=== PATIENT | female | born 1985 | race Caucasian/White ===

== ENCOUNTER 2018-11-30 12:29 | Emergency (ER) | payer OTHER ==
[~2018-11-30] VITALS: Ht 162.6 cm; Wt 57.6 kg
[~2018-11-30 12:29] MED LIST: ROBAXIN 750 MG750 MG PO; ULTRAM 50MG TAB50 MG PO
[2018-11-30] MEDS ORDERED: NALTREXONE HCL50 MG PO (12:42)
[2018-11-30] MEDS ORDERED: GABAPENTIN 100100 MG PO (12:42)
[2018-11-30] MEDS ORDERED: SEROQUEL XR150 MG PO (12:43)
[2018-11-30] MEDS ORDERED: IBUPROFEN 600600 M1 PO (13:18)
[2018-11-30 13:39] VITALS: BP 139/76
== END 2018-11-30 13:41 | disposition home or self-care (01) ==
LOC: M.ERS 12:29
DX: S93.491A Sprain of other ligament of right ankle, initial encounter (principal); F32.9 Major depressive disorder, single episode, unspecified; F41.9 Anxiety disorder, unspecified; M41.9 Scoliosis, unspecified; J43.9 Emphysema, unspecified; F17.210 Nicotine dependence, cigarettes, uncomplicated; Z88.0 Allergy status to penicillin; Z88.1 Allergy status to other antibiotic agents; W18.39XA Other fall on same level, initial encounter; Y93.89 Activity, other specified; Y92.89 Other specified places as the place of occurrence of the external cause; Y99.8 Other external cause status

== ENCOUNTER 2019-07-03 19:55 | Emergency (ER) | payer OTHER ==
[~2019-07-03] VITALS: Ht 160 cm; Wt 57.6 kg
[~2019-07-03 19:55] MED LIST changes: +GABAPENTIN 100100 MG PO; +IBUPROFEN 600600 M1 PO; +NALTREXONE HCL50 MG PO; +SEROQUEL XR150 MG PO
[2019-07-03 22:40] LABS: INFLUENZA A ANTIGEN Negative (Negative); INFLUENZA B ANTIGEN Negative (Negative)
[2019-07-03] MEDS ORDERED: ZPAK PO (23:03)
[2019-07-03] MEDS ORDERED: MEDROLDOSEPACK PO (23:03)
[2019-07-03] MEDS ORDERED: DOXYCYCLINE 10100 MG PO (23:08)
[2019-07-03 23:39] VITALS: BP 122/90
== END 2019-07-03 23:39 | disposition home or self-care (01) ==
LOC: M.ERS 19:55
PROVIDERS: Nurse Practitioner Family
DX: J20.9 Acute bronchitis, unspecified (principal); J04.0 Acute laryngitis; F41.9 Anxiety disorder, unspecified; F32.9 Major depressive disorder, single episode, unspecified; M41.9 Scoliosis, unspecified; F17.210 Nicotine dependence, cigarettes, uncomplicated; Z88.1 Allergy status to other antibiotic agents; Z88.0 Allergy status to penicillin

== ENCOUNTER 2019-10-10 20:32 | Emergency (ER) | payer OTHER ==
[~2019-10-10] VITALS: Ht 162.6 cm; Wt 54.4 kg
[~2019-10-10 20:32] MED LIST changes: +DOXYCYCLINE 10100 MG PO; +MEDROLDOSEPACK PO; +ZPAK PO
[2019-10-10 21:09] LABS: URINE BILIRUBIN NEGATIVE (Negative); URINE BLOOD NEGATIVE (Negative); URINE CLARITY SL CLOUDY; URINE COLOR YELLOW; URINE GLUCOSE-RANDOM NEGATIVE (Negative); URINE KETONES NEGATIVE (Negative); URINE LEUKOCYTES NEGATIVE (Negative); URINE NITRITE POSITIVE (Negative); URINE PROTEIN NEGATIVE (Negative); URINE UROBILINOGEN 0.2 E.U./dl (0.2-1.0)
[2019-10-10 21:15] LABS: AMP/METHAMP POSITIVE (Negative); BACTERIA >30 Many /HPF (None Seen); BARBITURATES Negative (Negative); BENZODIAZEPINES Negative (Negative); CASTS None Seen /LPF (None Seen); COCAINE Negative (Negative); CRYSTALS None Seen /LPF (None Seen); METHADONE Negative (Negative); MUCUS >6 Heavy strn/LPF (None Seen); OPIATES POSITIVE (Negative); PCP Negative (Negative); SQUAMOUS >10 Many /LPF (0-3); THC Negative (Negative); URINE RBC 0-2 Rare /HPF (0-2); URINE WBC 0-5 Rare /HPF (0-5)
[2019-10-10 21:30] LABS: HEMATOCRIT 42.3 % (37.0-47.0); HEMOGLOBIN 14.2 gm/dL (12.0-15.0); MCH 27.9 pg (26.0-34.0); MCHC 33.7 g/dL (28.0-37.0); MPV 7.5 fl. (7.2-11.1); RBC 5.1 mil/uL (4.20-5.00); RDW-CV 14.8 % (10.5-14.5); WBC 7.7 thou/uL (4.0-11.0)
[2019-10-10 21:46] LABS: CALCIUM 7.8 mg/dL (8.5-10.1); CREATININE 0.8 mg/dL (0.6-1.3); POTASSIUM 3.1 mmol/L (3.5-5.1)
[2019-10-10 21:50] LABS: ALBUMIN 3.7 g/dL (3.4-5.0); TOTAL BILIRUBIN 0.2 mg/dL (<0.1-1.0); TOTAL PROTEIN 7.5 g/dL (6.4-8.2)
[2019-10-10 21:52] LABS: ALCOHOL 155 mg/dL (<10)
[2019-10-10 21:53] LABS: ACETAMINOPHEN < 2 ug/mL (10-30)
[2019-10-11 03:07] VITALS: BP 143/100
== END 2019-10-11 03:07 | disposition home or self-care (01) ==
LOC: M.ERS 20:32
PROVIDERS: Personal Emergency Response Attendant
DX: F19.10 Other psychoactive substance abuse, uncomplicated (principal); R44.0 Auditory hallucinations; F10.129 Alcohol abuse with intoxication, unspecified; Y90.6 Blood alcohol level of 120-199 mg/100 ml; M41.9 Scoliosis, unspecified; F17.210 Nicotine dependence, cigarettes, uncomplicated; Z88.1 Allergy status to other antibiotic agents; Z88.0 Allergy status to penicillin

== ENCOUNTER 2020-02-03 23:48 | Emergency (ER) | payer OTHER ==
[~2020-02-03] VITALS: Ht 162.6 cm; Wt 64.4 kg
[2020-02-04] MEDS ORDERED: MEDROLDOSEPACK PO (00:22)
[2020-02-04] MEDS ORDERED: FLUOCINOLONE AC60 GM TOP (00:22)
[2020-02-04 00:27] VITALS: BP 129/91
== END 2020-02-04 00:28 | disposition home or self-care (01) ==
LOC: M.ERS 23:48
DX: L25.9 Unspecified contact dermatitis, unspecified cause (principal); M65.312 Trigger thumb, left thumb; F32.9 Major depressive disorder, single episode, unspecified; F41.9 Anxiety disorder, unspecified; F17.210 Nicotine dependence, cigarettes, uncomplicated; Z88.0 Allergy status to penicillin; Z88.1 Allergy status to other antibiotic agents

== ENCOUNTER 2020-03-05 17:19 | Emergency (ER) | payer OTHER ==
[~2020-03-05] VITALS: Ht 162.6 cm; Wt 61.2 kg
[~2020-03-05 17:19] MED LIST changes: +FLUOCINOLONE AC60 GM TOP
[2020-03-05 17:56] VITALS: BP 136/79
== END 2020-03-05 17:56 | disposition left against medical advice (07) ==
LOC: M.ERS 17:19
DX: Z53.21 Procedure and treatment not carried out due to patient leaving prior to being seen by health care provider (principal)

== ENCOUNTER 2020-03-13 07:19 | Emergency (ER) | payer OTHER ==
[~2020-03-13] VITALS: Ht 162.6 cm; Wt 65.8 kg
[2020-03-13] MEDS ORDERED: DOXEPIN 10 MG C10 MG PO (07:30)
[2020-03-13] MEDS ORDERED: BUSPIRONE HCL10 MG PO (07:30)
[2020-03-13] MEDS ORDERED: SEROQUEL 25 MG25 MG PO (07:30)
[2020-03-13] MEDS ORDERED: MELOXICAM15 MG PO (08:41)
[2020-03-13 09:30] VITALS: BP 128/66
== END 2020-03-13 09:30 | disposition home or self-care (01) ==
LOC: M.ERS 07:19
DX: S93.492A Sprain of other ligament of left ankle, initial encounter (principal); S93.692A Other sprain of left foot, initial encounter; M41.9 Scoliosis, unspecified; F17.210 Nicotine dependence, cigarettes, uncomplicated; Z88.1 Allergy status to other antibiotic agents; Z88.0 Allergy status to penicillin; X50.9XXA Other and unspecified overexertion or strenuous movements or postures, initial encounter; Y93.89 Activity, other specified; Y92.89 Other specified places as the place of occurrence of the external cause; Y99.8 Other external cause status

== ENCOUNTER 2020-11-23 10:19 | Emergency (ER) | payer OTHER ==
[~2020-11-23] VITALS: Ht 162.6 cm; Wt 61.2 kg
[~2020-11-23 10:19] MED LIST changes: +BUSPIRONE HCL10 MG PO; +DOXEPIN 10 MG C10 MG PO; +MELOXICAM15 MG PO; +SEROQUEL 25 MG25 MG PO
[2020-11-23 10:59] LABS: ABSOLUTE BASOPHILS 0.1 thou/uL (0.0-0.2); ABSOLUTE EOSINOPHILS 0.1 thou/uL (0.0-0.7); ABSOLUTE MONOCYTES 0.5 thou/uL (0.0-1.2); ABSOLUTE NEUTROPHILS 3.2 thou/uL (1.6-8.1); BASOPHILS 1.4 %; EOSINOPHILS 1.5 %; HEMATOCRIT 40.6 % (37.0-47.0); HEMOGLOBIN 13.2 gm/dL (12.0-15.0); LYMPHOCYTES 34.7 %; MCH 26.2 pg (26.0-34.0); MCHC 32.5 g/dL (28.0-37.0); MCV 80.5 fL (80.0-100.0); MONOCYTES 7.9 %; MPV 7.1 fl. (7.2-11.1); NUCLEATED RBCS 0 /100WBC; PLATELET COUNT* 313 thou/uL (150-400); POLYS 54.5 %; RBC 5.05 mil/uL (4.20-5.00); WBC 5.9 thou/uL (4.0-11.0)
[2020-11-23 11:09] LABS: CALCIUM 9.5 mg/dL (8.5-10.1); CREATININE 0.6 mg/dL (0.6-1.3); POTASSIUM 4.6 mmol/L (3.5-5.1)
[2020-11-23 11:14] LABS: ALBUMIN 4.2 g/dL (3.4-5.0); TOTAL BILIRUBIN 0.9 mg/dL (<0.1-1.0)
[2020-11-23 13:55] VITALS: BP 122/72
--- NOTE | 2020-11-25 10:55 | EKG ---
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
== END 2020-11-23 13:56 | disposition home or self-care (01) ==
LOC: M.ERS 10:19
PROVIDERS: Physician Assistant
DX: R07.89 Other chest pain (principal); M41.9 Scoliosis, unspecified; F17.210 Nicotine dependence, cigarettes, uncomplicated; Z88.1 Allergy status to other antibiotic agents; Z88.0 Allergy status to penicillin

== ENCOUNTER 2020-12-12 18:15 | Emergency (ER) | payer OTHER ==
[~2020-12-12] VITALS: Ht 162.6 cm; Wt 81.7 kg
[2020-12-12 18:58] LABS: ABSOLUTE EOSINOPHILS 0.2 thou/uL (0.0-0.7); ABSOLUTE LYMPHOCYTES 4.7 thou/uL (0.8-5.3); ABSOLUTE NEUTROPHILS 2.5 thou/uL (1.6-8.1); EOSINOPHILS 2.2 %; HEMATOCRIT 44.7 % (37.0-47.0); MCH 27.6 pg (26.0-34.0); PLATELET COUNT* 398 thou/uL (150-400); RDW-CV 16.5 % (10.5-14.5)
[2020-12-12 19:02] LABS: ABSOLUTE BASOPHILS 0.1 thou/uL (0.0-0.2); ABSOLUTE MONOCYTES 0.4 thou/uL (0.0-1.2); BASOPHILS 0.9 %; LYMPHOCYTES 59.7 %; MCHC 33.5 g/dL (28.0-37.0); MCV 82.3 fL (80.0-100.0); MONOCYTES 5.4 %; MPV 7.2 fl. (7.2-11.1); NUCLEATED RBCS 0 /100WBC; POLYS 31.8 %; RBC 5.43 mil/uL (4.20-5.00); WBC 7.9 thou/uL (4.0-11.0)
[2020-12-12 19:02] LABS: URINE BILIRUBIN NEGATIVE (Negative); URINE BLOOD NEGATIVE (Negative); URINE CLARITY CLEAR; URINE COLOR YELLOW; URINE GLUCOSE-RANDOM NEGATIVE (Negative); URINE KETONES NEGATIVE (Negative); URINE LEUKOCYTES-REFLEX NEGATIVE (Negative); URINE NITRITE-REFLEX NEGATIVE (Negative); URINE PROTEIN NEGATIVE (Negative); URINE UROBILINOGEN 0.2 E.U./dl (0.2-1.0)
[2020-12-12 19:06] LABS: CALCIUM 8.4 mg/dL (8.5-10.1); CREATININE 0.8 mg/dL (0.6-1.3); POTASSIUM 3.4 mmol/L (3.5-5.1)
[2020-12-12 19:10] LABS: TOTAL BILIRUBIN 0.2 mg/dL (<0.1-1.0); TOTAL PROTEIN 8.2 g/dL (6.4-8.2)
[2020-12-12 19:11] LABS: AMP/METHAMP POSITIVE (Negative); BARBITURATES Negative (Negative); BENZODIAZEPINES Negative (Negative); COCAINE Negative (Negative); METHADONE Negative (Negative); OPIATES Negative (Negative); PCP Negative (Negative); THC POSITIVE (Negative)
[2020-12-12 19:22] LABS: SALICYLATE 3.6 mg/dL (2.8-20.0)
[2020-12-12 19:25] LABS: ALCOHOL 418 mg/dL (<10)
[2020-12-12 19:26] LABS: ACETAMINOPHEN < 2 ug/mL (10-30)
[2020-12-14 01:30] VITALS: BP 118/68
== END 2020-12-14 01:30 | disposition still patient (30) ==
LOC: M.ERS 18:15
PROVIDERS: Emergency Medicine Emergency Medical Services
DX: R45.851 Suicidal ideations (principal); Z20.822 Contact with and (suspected) exposure to COVID-19; M41.9 Scoliosis, unspecified; F17.210 Nicotine dependence, cigarettes, uncomplicated; Z88.1 Allergy status to other antibiotic agents; Z88.0 Allergy status to penicillin